=== PATIENT | male | born 1955 | race Caucasian/White ===

== ENCOUNTER 2023-12-30 07:40 | Inpatient (IN) | payer OTHER ==
[~2023-12-30] VITALS: Ht 188 cm; Wt 83.9 kg
[~2023-12-30 07:40] MED LIST: CELECOXIB 100 MG CAPSULE PO ONE; GABAPENTIN 300 MG CAPSULE PO ONE; SCOPOLAMINE HYDROBROMIDE 1 MG PATCH .72 H (TRANSDERM-SCOP) TD ONE; oxyCODONE HCL 10 MG TAB.ER.12H PO ONE
[2023-12-30] MEDS ORDERED: ACETAMINOPHEN 500 MG TABLET ONE (08:08)
[2023-12-30] MEDS: GABAPENTIN 300 MG CAPSULE ONE (08:45)
[2023-12-30] MEDS: SCOPOLAMINE HYDROBROMIDE 1 MG PATCH .72 H (TRANSDERM-SCOP) TD ONE (08:45)
[2023-12-30] MEDS: ACETAMINOPHEN 500 MG TABLET PO ONE (08:45)
[2023-12-30] MEDS: CELECOXIB 100 MG CAPSULE ONE (08:50)
[2023-12-30 09:17] LABS: CALCIUM 8.9 mg/dL (8.4-11.0); CREATININE 1.23 mg/dL (0.55-1.30)
[2023-12-30 09:22] LABS: ALBUMIN 3.5 g/dL (3.4-4.8); TOTAL PROTEIN, SERUM 6.7 g/dL (6.4-8.3)
[2023-12-30] MEDS: oxyCODONE HCL 10 MG TAB.ER.12H PO ONE (09:38)
[2023-12-30] MEDS ORDERED: ceFAZolin SODIUM 2 GM VIAL ONE (09:45)
[2023-12-30] MEDS ORDERED: PROPOFOL 200MG/ 20ML VIAL (DIPRIVAN) IV ONE (09:45)
[2023-12-30] MEDS ORDERED: BUPIVACAINE /DEX PF 0.75% SPINAL 2 ML AMP INJ ONE (09:45)
[2023-12-30] MEDS ORDERED: VANCOMYCIN HCL 1000 MG/VIAL IV ONE (09:45)
[2023-12-30] MEDS ORDERED: TRANEXAMIC ACID 1,000 MG/10 ML VIAL ONE (09:45)
[2023-12-30] MEDS ORDERED: LR 1,000 ML IV.SOLN IV ONE (09:45)
[2023-12-30] MEDS ORDERED: NS IRRIG SOLN 1000 ML IR ONE (09:45)
[2023-12-30] MEDS ORDERED: HYDROmorphone 1 MG/ML INJ. CARTRIDGE IVP PRN ×5 (11:00→14:00)
[2023-12-30] MEDS ORDERED: LORATADINE 10 MG TABLET PO PRN (11:00)
[2023-12-30] MEDS ORDERED: oxyCODONE HCL 5 MG TABLET PO PRN ×2 (11:00)
[2023-12-30] MEDS ORDERED: traMADol HCL HCL 50 MG TABLET (ULTRAM) PO PRN (11:00)
[2023-12-30] MEDS ORDERED: ONDANSETRON HCL 4 MG/2 ML VIAL IVP PRN ×2 (11:45→14:00)
[2023-12-30] MEDS ORDERED: BISACODYL 10 MG/SUPPOSITORY RC PRN (13:15)
[2023-12-30] MEDS ORDERED: NALOXONE HCL 0.4 MG/ML AMP (NARCAN) IVP PRN ×6 (13:15→14:00)
[2023-12-30] MEDS ORDERED: METOCLOPRAMIDE HCL 10 MG/2 ML VIAL IVP PRN (13:15)
[2023-12-30] MEDS ORDERED: LACTULOSE 20 GM/30 ML UDC PO PRN (13:15)
[2023-12-30] MEDS ORDERED: DIPHENHYDRAMINE HCL 25 MG CAPSULE PO PRN (13:15)
[2023-12-30] MEDS ORDERED: hydrALAZINE HCL 20 MG/ML VIAL IV PRN (14:00)
[2023-12-30] MEDS ORDERED: ASPI-1155 PO (14:07)
[2023-12-30] MEDS ORDERED: LIP40 PO (14:07)
[2023-12-30] MEDS ORDERED: HYDROmorphone 1 MG/ML INJ. CARTRIDGE ONE (14:31)
[2023-12-30] MEDS: HYDROmorphone 1 MG/ML INJ. CARTRIDGE IVP PRN (14:34)
[2023-12-30] MEDS ORDERED: ceFAZolin SODIUM 2 GM in D5W 50 ML IV SCH (15:00)
[2023-12-30] MEDS ORDERED: TAMSULOSIN HCL 0.4 MG CAP PO ONE (15:45)
[2023-12-30 17:00] VITALS: BP_SYST 110; PULSE 60; RESP 16; TEMP 97.3; O2SAT 95
[2023-12-30 17:18] VITALS: BP_SYST 104; PULSE 77; RESP 18; TEMP 97.3; O2SAT 96
[2023-12-30 19:00] VITALS: BP_SYST 112; PULSE 62; RESP 16; TEMP 97.4; O2SAT 96
[2023-12-30] MEDS: KETOROLAC TROMETHAMINE 10 MG TABLET (TORADOL) PO SCH (19:58)
[2023-12-30 20:10] VITALS: BP_SYST 92; PULSE 74; RESP 18; TEMP 98.6; O2SAT 94
[2023-12-30] MEDS: SENNOSIDES/DOCUSATE SODIUM 1 TAB TABLET(SENOKOT-S) PO SCH (21:00)
[2023-12-30 21:40] VITALS: O2SAT 94
[2023-12-30] MEDS: CEFAZOLIN SOD 2 GM in D5W 50 ML IV SCH (22:31)
[2023-12-30] MEDS: ACETAMINOPHEN 500 MG TABLET PO SCH (23:04)
[2023-12-31] VITALS (8 sets, daily range): BP systolic 77–94; PULSE 76–98; RESP 16–18; TEMP 98.2–99.4; O2SAT 89–99
[2023-12-31 05:57] LABS: BASOPHILS % (AUTO) 0.2 % (0.0-2.0); EOSINOPHILS # (AUTO) 0.1 K/uL (0.0-0.4); EOSINOPHILS % (AUTO) 0.9 % (0.0-4.0); HEMATOCRIT 38.9 % (36-54); HEMOGLOBIN 13.4 g/dL (14.0-18.0); LYMPHOCYTES # (AUTO) 0.8 K/uL (1.0-5.5); LYMPHOCYTES % (AUTO) 11.1 % (20.5-51.5); MEAN CORPUSCULAR HEMOGLOBIN 33 pg (27-31); MEAN CORPUSCULAR HGB CONC 35 % (32-36); MEAN CORPUSCULAR VOLUME 95 fL (79.0-98.0); MONOCYTES % (AUTO) 13.4 % (1.7-9.3); NEUTROPHILS # (AUTO) 5.7 K/uL (1.8-7.7); NEUTROPHILS % (AUTO) 74.4 % (40.0-70.0); PLATELET COUNT (AUTO) 161 K/uL (130-430); RED BLOOD CELL COUNT(AUTO) 4.11 MIL/uL (4.2-6.2); RED CELL DISTRIBUTION WIDTH 13.4 % (9.0-15.0); WHITE BLOOD COUNT (AUTO) 7.6 K/uL (4.8-10.8)
[2023-12-31 07:14] LABS: ALBUMIN 2.7 g/dL (3.4-4.8); CALCIUM 8.1 mg/dL (8.4-11.0); CREATININE 1.16 mg/dL (0.55-1.30); POTASSIUM 5.3 mmol/L (3.5-5.1); TOTAL BILIRUBIN 0.7 mg/dL (0.0-1.0); TOTAL PROTEIN, SERUM 5.3 g/dL (6.4-8.3)
[2023-12-31] MEDS: ASPIRIN 81 MG TAB.CHEW PO SCH (10:09)
[2023-12-31] MEDS: TAMSULOSIN HCL 0.4 MG CAP PO ONE (10:13)
[2023-12-31] MEDS: TAMSULOSIN HCL 0.4 MG CAP PO SCH (10:22)
[2023-12-31] MEDS: CELECOXIB 200 MG CAPSULE PO SCH (10:36)
== END 2023-12-31 16:10 | disposition home health service (06) | DRG 470 ==
LOC: SMU 07:40
PROVIDERS: ADMIT Student in an Organized Health Care Education/Training Program; ATTEND Student in an Organized Health Care Education/Training Program
PROC: 0SR904A Replacement of Right Hip Joint with Ceramic on Polyethylene Synthetic Substitute, Uncemented, Open Approach (ICD-10-PCS; principal; 2023-12-30 09:30)
DX: M16.11 Unilateral primary osteoarthritis, right hip (principal)
CPT/HCPCS: 36415; 72170-TC; 76000; 80053; 85025; 87081; 88304; 88311; 96379; 97110-GP; 97116-GP; 97530-GP; A4649; C1713; C1776; J0690; J0696; J1170; J2704; J3370; J3490; J7060; J7120